=== PATIENT | female | born 1955 | race Caucasian/White ===

== ENCOUNTER 2016-06-18 14:38 | Emergency (ER) | payer MEDICARE, MEDICAID ==
[~2016-06-18] VITALS: Ht 172.7 cm; Wt 82.0 kg
[2016-06-18 14:40] VITALS: BP 135/84; PULSE 87; RESP 16; TEMP 98.2; O2SAT 98
--- NOTE | 2016-06-18 14:47 | PD ---
Physical Exam Time Seen by Provider: 14:45 Narrative 60 y/o female presents for evaluation of suicidal thoughts for weeks. She is also requesting alcohol detoxification. Vital signs reviewed. Seen at triage desk. Awaiting bed placement. Data Data Last Documented VS Vital Signs Date Time Temp Pulse Resp B/P Pulse Ox O2 Delivery O2 Flow Rate FiO2 06/18/16 18:07 92 19 133/62 95 Room Air 06/18/16 14:40 98.2 Orders Alcohol Withdrawal Asmt-Ciwa ONCE (06/18/16 15:52) Flumazenil Inj (Romazicon Inj) (06/18/16 16:00) Lorazepam (Ativan) (06/18/16 16:00) Lorazepam Inj (Ativan Inj) (06/18/16 16:00) Lorazepam (Ativan) (06/18/16 16:00) Lorazepam Inj (Ativan Inj) (06/18/16 16:00) Lorazepam Inj (Ativan Inj) (06/18/16 16:00) Lorazepam Inj (Ativan Inj) (06/18/16 16:00) Complete Blood Count With Diff (06/18/16 15:52) Comprehensive Metabolic Panel (06/18/16 15:52) Psych Screen (06/18/16 15:52) Drug Screen, Random Urine (06/18/16 15:52) Salicylates (Aspirin) (06/18/16 15:52) Tylenol (Acetaminophen) (06/18/16 15:52) Electrocardiogram (06/18/16 ) Tetanus/Diphtheria Tox Adult (Tetanus/Di (06/18/16 16:30) Alcohol (Ethanol) (06/18/16 17:06) Sumatriptan Succinate (Imitrex) (06/18/16 18:15) Labs Laboratory Tests Test 06/18/16 06/18/16 16:09 16:14 White Blood Count 5.5 TH/MM3 Red Blood Count 4.77 MIL/MM3 Hemoglobin 12.8 GM/DL Hematocrit 39.1 % Mean Corpuscular Volume 82.0 FL Mean Corpuscular Hemoglobin 26.8 PG Mean Corpuscular Hemoglobin 32.7 % Concent Red Cell Distribution Width 19.2 % Platelet Count 246 TH/MM3 Mean Platelet Volume 7.8 FL Neutrophils (%) (Auto) 46.1 % Lymphocytes (%) (Auto) 42.0 % Monocytes (%) (Auto) 6.5 % Eosinophils (%) (Auto) 4.2 % Basophils (%) (Auto) 1.2 % Neutrophils # (Auto) 2.5 TH/MM3 Lymphocytes # (Auto) 2.3 TH/MM3 Monocytes # (Auto) 0.4 TH/MM3 Eosinophils # (Auto) 0.2 TH/MM3 Basophils # (Auto) 0.1 TH/MM3 CBC Comment DIFF FINAL Differential Comment Sodium Level 138 MEQ/L Potassium Level 4.7 MEQ/L Chloride Level 105 MEQ/L Carbon Dioxide Level 25.5 MEQ/L Anion Gap 8 MEQ/L Blood Urea Nitrogen 22 MG/DL Creatinine 1.05 MG/DL Estimat Glomerular Filtration 53 ML/MIN Rate Random Glucose 118 MG/DL Calcium Level 9.6 MG/DL Total Bilirubin 0.2 MG/DL Aspartate Amino Transf 19 U/L (AST/SGOT) Alanine Aminotransferase 18 U/L (ALT/SGPT) Alkaline Phosphatase 74 U/L Total Protein 7.4 GM/DL Albumin 3.9 GM/DL Salicylates Level LESS THAN 1.7 MG/DL Acetaminophen Level 2.4 MCG/ML Urine Opiates Screen NEG Urine Barbiturates Screen POS Urine Amphetamines Screen NEG Urine Benzodiazepines Screen POS Urine Cocaine Screen NEG Urine Cannabinoids Screen NEG MDM Medical Record Reviewed: Yes Supervised Visit with TAB: Fernandez Prince June 18, 2016 14:47
[2016-06-18] MEDS ORDERED: LORazepam 2 MG/ML VIAL IV PUSH PRN ×4 (16:00)
[2016-06-18] MEDS ORDERED: FLUMAZENIL 0.5 MG/5 ML VIAL IV PUSH PRN (16:00)
[2016-06-18] MEDS ORDERED: LORazepam 2 MG TAB PO PRN (16:00)
[2016-06-18] MEDS ORDERED: LORazepam 1 MG TAB PO PRN (16:00)
--- NOTE | 2016-06-18 16:13 | PD ---
HPI Chief Complaint: Suicide Ideation/Attempt Time Seen by Provider: 14:45 Travel History International Travel<30 days: No Contact w/Intl Traveler<30days: No Traveled to known affect area: No History of Present Illness HPI 60-year-old female with history of depression, alcoholism presents for evaluation of depression and suicidal ideation. She's been feeling increasingly depressed and lonely past 2 weeks. 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 She has been having thoughts of suicide. She reports that she has a formulated plan to or does not want to discuss it. She reports that she isn't alcoholic, drinks very heavily, approximately 10 shots of alcohol as well as several beers on a daily basis. She reports that last night she was having difficulty sleeping and so she took extra doses of her prescribed Klonopin, temazepam, as well as [id number] sleeping medications and Atarax. She drinks some beer this morning. She denies any other ingestions. She does endorse self-harm in the form of cutting on the left wrist. Last tetanus vaccination unknown. She denies any illicit drug use. She would like help with her alcoholism. She has no other complaints at this time. [facility] Past Medical History Cardiovascular Problems: Yes (LOW BP) Diabetes: Yes (CONTROLLED WITH DIET) Past Surgical History Hysterectomy: Yes Social History Alcohol Use: Yes Tobacco Use: No Allergies-Medications (Allergen,Severity, Reaction): Coded Allergies: Motrin (Verified Allergy, Unknown, 06/18/16) Nonsteroidal Anti-Inflammatory Agts (Verified Allergy, Unknown, 06/18/16) Review of Systems Except as stated in HPI: all other systems reviewed are Neg Physical Exam Narrative GENERAL: This is a anxious and tearful appearing female who is in no acute distress. She is answering questions appropriately. SKIN: Warm and dry. Superficial abrasions noted to the left wrist. HEAD: Atraumatic. Normocephalic. EYES: Pupils equal and round. No scleral icterus. No injection or drainage. ENT: No nasal bleeding or discharge. Mucous membranes pink and moist. NECK: Trachea midline. No JVD. CARDIOVASCULAR: Regular rate and rhythm. No murmur appreciated. RESPIRATORY: No accessory muscle use. Clear to auscultation. Breath sounds equal bilaterally. GASTROINTESTINAL: Abdomen soft, non-tender, nondistended. Hepatic and splenic margins not palpable. MUSCULOSKELETAL: No obvious deformities. No clubbing. No cyanosis. No edema. NEUROLOGICAL: Awake and alert. No obvious cranial nerve deficits. Motor grossly within normal limits. Normal speech. PSYCHIATRIC: Depressed, anxious, tearful. Data Data Last Documented VS Vital Signs Date Time Temp Pulse Resp B/P Pulse Ox O2 Delivery O2 Flow Rate FiO2 06/18/16 14:40 98.2 87 16 135/84 98 Orders Alcohol Withdrawal Asmt-Ciwa ONCE (06/18/16 15:52) Flumazenil Inj (Romazicon Inj) (06/18/16 16:00) Lorazepam (Ativan) (06/18/16 16:00) Lorazepam Inj (Ativan Inj) (06/18/16 16:00) Lorazepam (Ativan) (06/18/16 16:00) Lorazepam Inj (Ativan Inj) (06/18/16 16:00) Lorazepam Inj (Ativan Inj) (06/18/16 16:00) Lorazepam Inj (Ativan Inj) (06/18/16 16:00) Complete Blood Count With Diff (06/18/16 15:52) Comprehensive Metabolic Panel (06/18/16 15:52) Psych Screen (06/18/16 15:52) Drug Screen, Random Urine (06/18/16 15:52) Salicylates (Aspirin) (06/18/16 15:52) Tylenol (Acetaminophen) (06/18/16 15:52) Electrocardiogram (06/18/16 ) Tetanus/Diphtheria Tox Adult (Tetanus/Di (06/18/16 16:30) Alcohol (Ethanol) (06/18/16 17:06) Labs Laboratory Tests Test 06/18/16 06/18/16 16:09 16:14 White Blood Count 5.5 TH/MM3 Red Blood Count 4.77 MIL/MM3 Hemoglobin 12.8 GM/DL Hematocrit 39.1 % Mean Corpuscular Volume 82.0 FL Mean Corpuscular Hemoglobin 26.8 PG Mean Corpuscular Hemoglobin 32.7 % Concent Red Cell Distribution Width 19.2 % Platelet Count 246 TH/MM3 Mean Platelet Volume 7.8 FL Neutrophils (%) (Auto) 46.1 % Lymphocytes (%) (Auto) 42.0 % Monocytes (%) (Auto) 6.5 % Eosinophils (%) (Auto) 4.2 % Basophils (%) (Auto) 1.2 % Neutrophils # (Auto) 2.5 TH/MM3 Lymphocytes # (Auto) 2.3 TH/MM3 Monocytes # (Auto) 0.4 TH/MM3 Eosinophils # (Auto) 0.2 TH/MM3 Basophils # (Auto) 0.1 TH/MM3 CBC Comment DIFF FINAL Differential Comment Sodium Level 138 MEQ/L Potassium Level 4.7 MEQ/L Chloride Level 105 MEQ/L Carbon Dioxide Level 25.5 MEQ/L Anion Gap 8 MEQ/L Blood Urea Nitrogen 22 MG/DL Creatinine 1.05 MG/DL Estimat Glomerular Filtration 53 ML/MIN Rate Random Glucose 118 MG/DL Calcium Level 9.6 MG/DL Total Bilirubin 0.2 MG/DL Aspartate Amino Transf 19 U/L (AST/SGOT) Alanine Aminotransferase 18 U/L (ALT/SGPT) Alkaline Phosphatase 74 U/L Total Protein 7.4 GM/DL Albumin 3.9 GM/DL Salicylates Level LESS THAN 1.7 MG/DL Acetaminophen Level 2.4 MCG/ML Urine Opiates Screen NEG Urine Barbiturates Screen POS Urine Amphetamines Screen NEG Urine Benzodiazepines Screen POS Urine Cocaine Screen NEG Urine Cannabinoids Screen NEG MDM Medical Decision Making Medical Screen Exam Complete: Yes Emergency Medical Condition: Yes Medical Record Reviewed: Yes Differential Diagnosis Major depressive disorder, depressive disorder not otherwise specified, substance-induced mood disorder, adjustment reaction, acute psychosis Narrative Course 60-year-old female presents with worsening depression over the past few weeks, significant alcohol use. She admits to taking extra doses of her prescribed benzodiazepines last night as well as [id number] sleeping medications in an effort to sleep last night. Denies any other toxic ingestions today. She is awake and alert, appears very depressed and tearful. Discussed with Dr. Bledsoe who placed under Mcintyre act. Tetanus status updated Mental health screening discussed with the patient. Psychiatric screen ordered. +barbiturates, benzo's. Medically cleared for psychiatry. Diagnosis Primary Impression: Depression Qualified Code: F32.9 - Depression, unspecified depression type Additional Impression: Alcohol abuse Fernandez Balderas June 18, 2016 16:13
[2016-06-18] MEDS ORDERED: TETANUS/DIPHTHERIA TOXOID ADULT 0.5 ML VIAL IM ONE (16:30)
[2016-06-18 16:42] LABS: AUTOMATED NEUTROPHIL # 2.5 TH/MM3 (1.8-7.7); BASOPHIL # 0.1 TH/MM3 (0-0.2); BASOPHIL % 1.2 % (0.0-2.0); EOSINOPHIL # 0.2 TH/MM3 (0-0.4); EOSINOPHIL % 4.2 % (0.0-4.0); HEMATOCRIT 39.1 % (35.0-46.0); HEMO FLAGS DIFF FINAL; LYMPHOCYTE # 2.3 TH/MM3 (1.0-4.8); MEAN CORPUSCULAR HEMOGLOBIN 26.8 PG (27.0-34.0); MEAN CORPUSCULAR HGB CONC 32.7 % (32.0-36.0); MONO % 6.5 % (0.0-8.0); NEUT % 46.1 % (16.0-70.0); PLATELET COUNT 246 TH/MM3 (150-450); RED BLOOD COUNT 4.77 MIL/MM3 (4.00-5.30); RED CELL DISTRIBUTION WIDTH 19.2 % (11.6-17.2); WHITE BLOOD COUNT 5.5 TH/MM3 (4.0-11.0)
[2016-06-18 17:03] LABS: AMPHETAMINE, URINE NEG (NEG); BARBITURATES, URINE POS (NEG); COCAINE, URINE NEG (NEG)
[2016-06-18 17:04] LABS: ACETAMINOPHEN 2.4 MCG/ML (10.0-30.0); ALKALINE PHOSPHATASE 74 U/L (45-117); ALT (GPT) 18 U/L (10-53); TOTAL BILIRUBIN ADULT 0.2 MG/DL (0.2-1.0)
[2016-06-18 17:06] LABS: ANION GAP 8 MEQ/L (5-15); AST (GOT) 19 U/L (15-37); BICARBONATE 25.5 MEQ/L (21.0-32.0); BLOOD UREA NITROGEN 22 MG/DL (7-18); CHLORIDE 105 MEQ/L (98-107); GLOMERULAR FILTRATION RATE 53 ML/MIN (>89); POTASSIUM 4.7 MEQ/L (3.5-5.1); SODIUM (NA) 138 MEQ/L (136-145)
[2016-06-18 18:07] VITALS: BP 133/62; PULSE 92; RESP 19; O2SAT 95
[2016-06-18] MEDS ORDERED: SUMAtriptan SUCCINATE 25 MG TAB PO ONE (18:15)
[2016-06-18 22:00] VITALS: BP 126/69; PULSE 78; RESP 17; O2SAT 97
[2016-06-19 02:05] VITALS: RESP 18
[2016-06-19 06:00] VITALS: BP 109/52; PULSE 70; RESP 19; O2SAT 95
[2016-06-19] MEDS ORDERED: SUMAtriptan SUCCINATE 25 MG TAB PO ONE (07:45)
--- NOTE | 2016-06-19 09:03 | PD ---
History of Present Illness Chief Complaint: Suicide Ideation/Attempt Time Seen by Provider: 08:45 Travel History International Travel<30 Days: No Contact w/Intl Traveler<30days: No Known affected area: No Legal Status Legal Status: Mcintyre Act Mcintyre Act Signed By: MOISES signed by: ELVIN Vinson. 06/18/16, [id number] History of Present Illness: History of Present Illness HPI 60-year-old female with history of alcohol dependence and depression presents for evaluation of depression and suicidal ideation. ED documentation is reviewed and included in this report: She's been feeling increasingly depressed and lonely past 2 weeks. 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 She has been having thoughts of suicide. She reports that she has a formulated plan to or does not want to discuss it. She reports that she isn't alcoholic, drinks very heavily, approximately 10 shots of alcohol as well as several beers on a daily basis. She reports that last night she was having difficulty sleeping and so she took extra doses of her prescribed Klonopin, temazepam, as well as wejm-mbk-kozpiip sleeping medications and Atarax. She drinks some beer this morning. She denies any other ingestions. She does endorse self-harm in the form of cutting on the left wrist. EMR is reviewed. case discussed with J pod RN . Patient is seen. Patient has been monitored in J pod with no behavioral concerns and no suicidality. Patient this morning is clinically sober. She is alert and oriented with clear and logical speech. her thoughts are organized with no indication of any hallucinations, no delusions and no paranoia.No current symptoms of withdrawal. She does complain of having a migraine headache. In terms of reason for admission she states " I called my PCP Dr. Dey and told him I needed to be detoxed from ETOH . He told me to come her for that. I will be going out again with my so after June 23 and need to be out by then. She denies any suicidal or homicidal ideation, intent or plan. Recent stressors include that she has been spending too much time by herself since her significant other drives a truck and she has not been travelling with him. She had a period of 1 year of sobriety but relapsed 3 months ago. [facility] Past Medical History Depression: Yes Cardiovascular Problems: Yes (LOW BP) Diabetes: Yes Patient Takes Glucophage: No Diminished Hearing: No Hypertension: Yes Migraines: Yes ?: Not Past Surgical History Abdominal Surgery: Yes Cholecystectomy: Yes Hysterectomy: Yes Other Surgery: Yes (rt shoulder) Psychiatric History Psychiatric History Hx Psychiatric Treatment: Not currently History of Inpatient Treatment: Yes (as per record has had 2 previous admissions) Guns or firearms in home: No Social History Single female. Lives with her significant other. She is on disability. Hx Alcohol Use: Yes Hx Tobacco Use: No Hx Substance Use: No Substance Use Type: Alcohol (Long hx of ETOH abuse dating back to many years. deneis any other substance use.) Other Substances Used: Struggled with ETOH for years Hx of Substance Use Treatment: Yes (No AA) Family Psychiatric History None reported Allergies-Medications (Allergen,Severity, Reaction): Coded Allergies: Motrin (Verified Allergy, Unknown, 06/18/16) Nonsteroidal Anti-Inflammatory Agts (Verified Allergy, Unknown, 06/18/16) Review of Systems Constitutional: DENIES: Diaphoretic episodes, Fatigue, Fever, Weight gain, Weight loss, Chills, Dizziness, Change in appetite, Night Sweats Endocrine: DENIES: Abnorml menstrual pattern, Heat/cold intolerance, Polydipsia , Polyuria, Polyphagia Eyes: DENIES: Blurred vision, Diplopia, Eye inflammation, Eye pain, Vision loss , Photosensitivity, Double Vision Ears, nose, mouth, throat: DENIES: Tinnitus, Hearing loss, Vertigo, Nasal discharge, Oral lesions, Throat pain, Hoarseness, Ear Pain, Running Nose, Epistaxis, Sinus Pain, Toothache, Odynophagia Respiratory: DENIES: Apneas, Cough, Snoring, Wheezing, Hemoptysis, Sputum production, Shortness of breath Cardiovascular: DENIES: Chest pain, Palpitations, Syncope, Dyspnea on Exertion , PND, Lower Extremity Edema, Orthopnea, Claudication Gastrointestinal: COMPLAINS OF: Nausea Genitourinary: DENIES: Abnormal vaginal bleeding, Dysmenorrhea, Dyspareunia, Sexual dysfunction, Urinary frequency, Urinary incontinence, Urgency, Hematuria , Dysuria, Nocturia, Vaginal discharge Musculoskeletal: DENIES: Joint pain, Muscle aches, Stiffness, Joint Swelling, Back pain, Neck pain Integumentary: DENIES: Abnormal pigmentation, Pruritus, Rash, Nail changes, Breast masses, Breast skin changes, Nipple discharge Hematologic/lymphatic: DENIES: Bruising, Lymphadenopathy Immunologic/allergic: DENIES: Eczema, Urticaria Neurologic: COMPLAINS OF: Headache (migraines) Psychiatric: DENIES: Anxiety, Confusion, Mood changes, Depression, Hallucinations, Agitation, Suicidal Ideation, Homicidal Ideation, Delusions Exam Alert: Yes [place]: Person (ox4) Mood: Calm Affect: Appropriate Speech: Clear, Logical Eye Contact: Indirect Memory Intact: Comment (no impairment) Hallucinations: Other (negative) Suicidal: Ideation (denies any) Homicidal: Ideation (denies any) Insight/Judgement Fair. not impaired. MDM Medical Decision Making Medical Record Reviewed: Yes Assessment/Plan Lift BA as this patient does not meet criteria. She is requesting treatment for hwer alcohol dependency including detoxification. As we do not offer these services here she will be transferred to [facility]. Wally is future oriented and wants to be out of the hospital before the 23 of June when her so comes in to town. To [facility] for detoxification. Orders Alcohol Withdrawal Asmt-Ciwa ONCE (06/18/16 15:52) Flumazenil Inj (Romazicon Inj) (06/18/16 16:00) Lorazepam (Ativan) (06/18/16 16:00) Lorazepam Inj (Ativan Inj) (06/18/16 16:00) Lorazepam (Ativan) (06/18/16 16:00) Lorazepam Inj (Ativan Inj) (06/18/16 16:00) Lorazepam Inj (Ativan Inj) (06/18/16 16:00) Lorazepam Inj (Ativan Inj) (06/18/16 16:00) Complete Blood Count With Diff (06/18/16 15:52) Comprehensive Metabolic Panel (06/18/16 15:52) Psych Screen (06/18/16 15:52) Drug Screen, Random Urine (06/18/16 15:52) Salicylates (Aspirin) (06/18/16 15:52) Tylenol (Acetaminophen) (06/18/16 15:52) Electrocardiogram (06/18/16 ) Tetanus/Diphtheria Tox Adult (Tetanus/Di (06/18/16 16:30) Sumatriptan Succinate (Imitrex) (06/18/16 18:15) Diet Diabetic (06/19/16 Breakfast) Alcohol (Ethanol) (06/18/16 16:09) Sumatriptan Succinate (Imitrex) (06/19/16 07:45) Results Vital Signs Date Time Temp Pulse Resp B/P Pulse Ox O2 Delivery O2 Flow Rate FiO2 06/19/16 06:00 70 19 109/52 95 Room Air 06/19/16 02:05 18 Room Air 06/18/16 22:00 78 17 126/69 97 Room Air 06/18/16 18:07 92 19 133/62 95 Room Air 06/18/16 14:40 98.2 87 16 135/84 98 Laboratory Tests Test 06/18/16 06/18/16 16:09 16:14 Salicylates Level LESS THAN 1.7 White Blood Count 5.5 Red Blood Count 4.77 Hemoglobin 12.8 Hematocrit 39.1 Mean Corpuscular Volume 82.0 Mean Corpuscular Hemoglobin 26.8 Mean Corpuscular Hemoglobin 32.7 Concent Red Cell Distribution Width 19.2 Platelet Count 246 Mean Platelet Volume 7.8 Neutrophils (%) (Auto) 46.1 Lymphocytes (%) (Auto) 42.0 Monocytes (%) (Auto) 6.5 Eosinophils (%) (Auto) 4.2 Basophils (%) (Auto) 1.2 Neutrophils # (Auto) 2.5 Lymphocytes # (Auto) 2.3 Monocytes # (Auto) 0.4 Eosinophils # (Auto) 0.2 Basophils # (Auto) 0.1 CBC Comment DIFF FINAL Differential Comment Sodium Level 138 Potassium Level 4.7 Chloride Level 105 Carbon Dioxide Level 25.5 Anion Gap 8 Blood Urea Nitrogen 22 Creatinine 1.05 Estimat Glomerular Filtration 53 Rate Random Glucose 118 Calcium Level 9.6 Total Bilirubin 0.2 Aspartate Amino Transf 19 (AST/SGOT) Alanine Aminotransferase 18 (ALT/SGPT) Alkaline Phosphatase 74 Total Protein 7.4 Albumin 3.9 Acetaminophen Level 2.4 Ethyl Alcohol Level LESS THAN 3 Urine Opiates Screen NEG Urine Barbiturates Screen POS Urine Amphetamines Screen NEG Urine Benzodiazepines Screen POS Urine Cocaine Screen NEG Urine Cannabinoids Screen NEG Diagnosis Primary Impression: Alcohol dependence Additional Impression: Depression Psychiatrically Cleared: Yes Med/ Other Pt Specific Info: No Change to Meds Disposition: 65 DISC TO PSYCH CARE FACILITY Condition: Stable Problem Qualifiers Primary Impression: Alcohol dependence Qualified Code: F10.20 - Uncomplicated alcohol dependence Additional Impression: Depression Qualified Code: F32.9 - Depression, unspecified depression type Rose Leach June 19, 2016 09:03
[2016-06-19 09:42] VITALS: BP 109/52; PULSE 70; RESP 19; O2SAT 95
--- NOTE | 2016-06-19 18:46 | EKG ---
Date Performed: 06/18/2016 Time Performed: 16:19:57 PTAGE: 60 years EKG: Sinus rhythm MARKED LEFT AXIS DEVIATION PATTERN CONSISTENT WITH PULMONARY DISEASE ABNORMAL ECG NO PREVIOUS TRACING DOCTOR: Devon Stewart Interpretating Date/Time 06/19/2016 18:43:19
[2016-06-20] MEDS ORDERED: REST30CA PO (07:11)
[2016-06-20] MEDS ORDERED: NEXI40CA PO (07:11)
[2016-06-20] MEDS ORDERED: CHLO25CA2 PO (07:11)
[2016-06-20] MEDS ORDERED: BUTA1CAP PO (07:11)
[2016-06-20] MEDS ORDERED: CLON1 PO (07:11)
[2016-06-20] MEDS ORDERED: ASPI81TA81 PO (07:11)
[2016-06-20] MEDS ORDERED: LISI10TA3 PO (07:11)
[2016-06-20] MEDS ORDERED: REGADENOSON INJ 0.4 MG/5 ML SYR ONE (13:08)
== END 2016-06-19 10:41 ==
LOC: NEPJ 14:38
DX: F10.20 Alcohol dependence, uncomplicated (principal); F32.9 Major depressive disorder, single episode, unspecified; I10 Essential (primary) hypertension; E11.9 Type 2 diabetes mellitus without complications; Y90.0 Blood alcohol level of less than 20 mg/100 ml; Z79.899 Other long term (current) drug therapy; Z23 Encounter for immunization
CPT/HCPCS: 80053; 80307; 85025; 90471; 90714; 93005; J2785

== ENCOUNTER 2016-06-20 06:53 | Observation (INO) | payer MEDICARE, MEDICAID ==
[2016-06-20] VITALS (7 sets, daily range): BP systolic 110–166; BP diastolic 62–93; PULSE 65–91; RESP 16–22; TEMP 98.4–98.9; O2SAT 92–100
[~2016-06-20] VITALS: Ht 172.7 cm; Wt 90.0 kg
[2016-06-20] MEDS ORDERED: ASPI81TA81 PO (07:11)
[2016-06-20] MEDS ORDERED: NEXI40CA PO (07:11)
[2016-06-20] MEDS ORDERED: LISI10TA3 PO (07:11)
[2016-06-20] MEDS ORDERED: CLON1 PO (07:11)
[2016-06-20] MEDS ORDERED: REST30CA PO (07:11)
[2016-06-20] MEDS ORDERED: BUTA1CAP PO (07:11)
[2016-06-20] MEDS ORDERED: CHLO25CA2 PO (07:11)
[2016-06-20] MEDS ORDERED: ONDANSETRON HCL 4 MG/2 ML VIAL IV PUSH ONE (07:15)
[2016-06-20] MEDS ORDERED: SODIUM CHLORIDE 0.9% FLUSH 10 ML FLUSH IVF PRN (07:15)
[2016-06-20] MEDS ORDERED: MORPHINE SULFATE 4 MG/ML INJ IV PUSH ONE (07:15)
[2016-06-20] MEDS ORDERED: SODIUM CHLORID 0.9% 500 ML INJ 500 ML IV ONE (07:15)
--- NOTE | 2016-06-20 07:16 | PD ---
HPI Chief Complaint: Cardiac Complaint Time Seen by Provider: 07:04 Travel History International Travel<30 days: No Contact w/Intl Traveler<30days: No Traveled to known affect area: No History of Present Illness HPI The patient is a 60-year-old female who presents emergency department for [facility] for chest pain. The patient states she developed chest pain earlier this morning that is left-sided, radiates to left arm and left neck. The pain is squeezing, this was certainly movements, but still present at rest. The patient does have a history of hypertension, hyperlipidemia, and diabetes that is diet controlled. The patient denies any known history of coronary artery disease. The patient denies tobacco use. The patient does have a history of alcohol abuse. The patient states she has stress test years ago in [place], however, was unable to complete the stress test on the treadmill. The patient does complain of mild nausea and mild shortness of breath, but denies any vomiting, diarrhea, or abdominal pain. Symptoms are moderate, no current alleviating or exacerbating factors. The patient did receive aspirin prior to arrival as well as nitroglycerin sublingual which took her pain from a 10/10 to a 5/10. PFSH Past Medical History Depression: Yes Cardiovascular Problems: Yes (LOW BP) Diabetes: Yes Patient Takes Glucophage: No Diminished Hearing: No Hypertension: Yes Migraines: Yes Past Surgical History Abdominal Surgery: Yes (GASTRIC BYPASS) Cholecystectomy: Yes Hysterectomy: Yes Other Surgery: Yes (rt shoulder) Social History Alcohol Use: Yes (DAILY UNTIL 2 DAYS AGO) Tobacco Use: No Substance Use: No Allergies-Medications (Allergen,Severity, Reaction): Coded Allergies: Motrin (Verified Allergy, Unknown, 06/18/16) Nonsteroidal Anti-Inflammatory Agts (Verified Allergy, Unknown, 06/18/16) Reported Meds & Prescriptions Reported Meds & Active Scripts Active Reported Chlordiazepoxide (Chlordiazepoxide HCl) 25 Mg Cap 50 Mg PO QID Aspir-81 (Aspirin) 81 Mg Tabdr 81 Mg PO DAILY Restoril (Temazepam) 30 Mg Cap 30 Mg PO HS PRN Nexium (Esomeprazole DR) 40 Mg Capdr 40 Mg PO DAILY Klonopin (Clonazepam) 1 Mg Tab 1 Mg PO BID Lisinopril 10 Mg Tab 10 Mg PO DAILY Fioricet (Iosukpxsex-Shygnwsrjuzfq-Qhvjtwyp) 50-300-40 Mg Cap 1-2 Cap PO Q6H PRN Review of Systems Except as stated in HPI: all other systems reviewed are Neg General / Constitutional: No: Fever HENT: No: Lightheadedness Cardiovascular: Positive: Chest Pain or Discomfort Respiratory: Positive: Shortness of Breath Gastrointestinal: Positive: Nausea Musculoskeletal: No: Edema Neurologic: No: Dizziness Psychiatric: Positive: Substance Abuse (alcohol abuse) Physical Exam Narrative GENERAL: Awake, alert, 60-year-old female who appears her stated age and is in no acute respiratory distress. SKIN: Focused skin assessment warm/dry. HEAD: Atraumatic. Normocephalic. EYES: Pupils equal and round. No scleral icterus. No injection or drainage. ENT: No nasal bleeding or discharge. Mucous membranes pink and moist. NECK: Trachea midline. No JVD. Mild tenderness of the paravertebral muscles. CARDIOVASCULAR: Regular rate and rhythm. No murmur appreciated. Heart rate in the 90s. Palpation of the chest wall does reproduce symptoms. RESPIRATORY: No accessory muscle use. Clear to auscultation. Breath sounds equal bilaterally. GASTROINTESTINAL: Abdomen soft, non-tender, nondistended. No rebound tenderness. MUSCULOSKELETAL: No obvious deformities. No clubbing. No cyanosis. No edema. Palpation the left arm reproduces pain in left arm. NEUROLOGICAL: Awake and alert. No obvious cranial nerve deficits. Motor grossly within normal limits. Normal speech. Nonfocal. PSYCHIATRIC: Appropriate mood and affect; insight and judgment normal. Data Data Last Documented VS Vital Signs Date Time Temp Pulse Resp B/P Pulse Ox O2 Delivery O2 Flow Rate FiO2 06/20/16 08:37 65 16 123/82 98 Nasal Cannula 2 06/20/16 06:55 98.4 Orders Electrocardiogram (06/20/16 ) Electrocardiogram (06/20/16 07:10) Ckmb (Isoenzyme) Profile (06/20/16 07:10) Complete Blood Count With Diff (06/20/16 07:10) Comprehensive Metabolic Panel (06/20/16 07:10) D-Dimer (06/20/16 07:10) Magnesium (Mg) (06/20/16 07:10) Prothrombin Time / Inr (Pt) (06/20/16 07:10) Act Partial Throm Time (Ptt) (06/20/16 07:10) Troponin I (06/20/16 07:10) Lipase (06/20/16 07:10) Chest, Single Ap (06/20/16 07:10) Ecg Monitoring (06/20/16 07:10) Bilateral Bp Monitoring (06/20/16 07:10) Iv Access Insert/Monitor (06/20/16 07:10) Oximetry (06/20/16 07:10) Oxygen Administration (06/20/16 07:10) Morphine Inj (Morphine Inj) (06/20/16 07:15) Sodium Chloride 0.9% Flush (Ns Flush) (06/20/16 07:15) Sodium Chlorid 0.9% 500 Ml Inj (Ns 500 M (06/20/16 07:15) Ondansetron Inj (Zofran Inj) (06/20/16 07:15) CKMB (06/20/16 07:20) CKMB% (06/20/16 07:20) Labs Laboratory Tests Test 06/20/16 07:20 White Blood Count 5.3 TH/MM3 Red Blood Count 4.80 MIL/MM3 Hemoglobin 12.8 GM/DL Hematocrit 39.6 % Mean Corpuscular Volume 82.5 FL Mean Corpuscular Hemoglobin 26.6 PG Mean Corpuscular Hemoglobin 32.3 % Concent Red Cell Distribution Width 19.3 % Platelet Count 252 TH/MM3 Mean Platelet Volume 8.0 FL Neutrophils (%) (Auto) 45.2 % Lymphocytes (%) (Auto) 40.0 % Monocytes (%) (Auto) 9.5 % Eosinophils (%) (Auto) 4.4 % Basophils (%) (Auto) 0.9 % Neutrophils # (Auto) 2.4 TH/MM3 Lymphocytes # (Auto) 2.1 TH/MM3 Monocytes # (Auto) 0.5 TH/MM3 Eosinophils # (Auto) 0.2 TH/MM3 Basophils # (Auto) 0.0 TH/MM3 CBC Comment DIFF FINAL Differential Comment Prothrombin Time 10.9 SEC Prothromb Time International 1.0 RATIO Ratio Activated Partial 24.2 SEC Thromboplast Time D-Dimer Quantitative (PE/DVT) 0.37 MG/L FEU Sodium Level 138 MEQ/L Potassium Level 5.4 MEQ/L Chloride Level 107 MEQ/L Carbon Dioxide Level 21.9 MEQ/L Anion Gap 9 MEQ/L Blood Urea Nitrogen 14 MG/DL Creatinine 0.74 MG/DL Estimat Glomerular Filtration 80 ML/MIN Rate Random Glucose 138 MG/DL Calcium Level 8.4 MG/DL Magnesium Level 2.0 MG/DL Total Bilirubin 0.3 MG/DL Aspartate Amino Transf 48 U/L (AST/SGOT) Alanine Aminotransferase 19 U/L (ALT/SGPT) Alkaline Phosphatase 66 U/L Total Creatine Kinase 209 U/L Creatine Kinase MB 1.1 NG/ML Creatine Kinase MB % 0.5 % Troponin I LESS THAN 0.02 NG/ML Total Protein 6.7 GM/DL Albumin 3.2 GM/DL Lipase 92 U/L Exceptions Acute Myocardial Infarction ASA Not Given on Arrival: Already taken by patient MDM Medical Decision Making Medical Screen Exam Complete: Yes Emergency Medical Condition: Yes Medical Record Reviewed: Yes Interpretation(s) EKG reveals normal sinus rhythm with a rate 88. Left axis deviation. Wavy baseline in leads 2, 3, and aVF. Last Impressions Chest X-Ray 06/20/16 0710 Signed Impressions: Service Date/Time: Monday, June 20, 2016 07:16 - CONCLUSION: No acute cardiopulmonary abnormality is identified. Justino Ma MD Laboratory Tests Test 06/20/16 07:20 White Blood Count 5.3 TH/MM3 Red Blood Count 4.80 MIL/MM3 Hemoglobin 12.8 GM/DL Hematocrit 39.6 % Mean Corpuscular Volume 82.5 FL Mean Corpuscular Hemoglobin 26.6 PG Mean Corpuscular Hemoglobin 32.3 % Concent Red Cell Distribution Width 19.3 % Platelet Count 252 TH/MM3 Mean Platelet Volume 8.0 FL Neutrophils (%) (Auto) 45.2 % Lymphocytes (%) (Auto) 40.0 % Monocytes (%) (Auto) 9.5 % Eosinophils (%) (Auto) 4.4 % Basophils (%) (Auto) 0.9 % Neutrophils # (Auto) 2.4 TH/MM3 Lymphocytes # (Auto) 2.1 TH/MM3 Monocytes # (Auto) 0.5 TH/MM3 Eosinophils # (Auto) 0.2 TH/MM3 Basophils # (Auto) 0.0 TH/MM3 CBC Comment DIFF FINAL Differential Comment Prothrombin Time 10.9 SEC Prothromb Time International 1.0 RATIO Ratio Activated Partial 24.2 SEC Thromboplast Time D-Dimer Quantitative (PE/DVT) 0.37 MG/L FEU Sodium Level 138 MEQ/L Potassium Level 5.4 MEQ/L Chloride Level 107 MEQ/L Carbon Dioxide Level 21.9 MEQ/L Anion Gap 9 MEQ/L Blood Urea Nitrogen 14 MG/DL Creatinine 0.74 MG/DL Estimat Glomerular Filtration 80 ML/MIN Rate Random Glucose 138 MG/DL Calcium Level 8.4 MG/DL Magnesium Level 2.0 MG/DL Total Bilirubin 0.3 MG/DL Aspartate Amino Transf 48 U/L (AST/SGOT) Alanine Aminotransferase 19 U/L (ALT/SGPT) Alkaline Phosphatase 66 U/L Total Creatine Kinase 209 U/L Creatine Kinase MB 1.1 NG/ML Creatine Kinase MB % 0.5 % Troponin I LESS THAN 0.02 NG/ML Total Protein 6.7 GM/DL Albumin 3.2 GM/DL Lipase 92 U/L Differential Diagnosis Differential diagnosis includes acute coronary syndrome, atypical pancreatitis, pulmonary embolism, pneumonia, musculoskeletal pain, neuropathy. Narrative Course IV was established, labs are drawn and sent, and the patient was placed on cardiac telemetry monitoring and continuous pulse oximetry monitoring. EKG was ordered and interpreted. The patient received aspirin and nitroglycerin prior to arrival. The patient has atypical symptoms, however, nitroglycerin did improve her symptoms from a 10/10 to a 5/10. D-dimer is negative at 0.37, therefore, no indication for CT pulmonary angiogram. The patient's left arm is sore, she received a tetanus shot in the left arm yesterday. The patient's pain has improved with aspirin and nitroglycerin, may be atypical presentation of acute coronary syndrome. The patient does have multiple risk factors, therefore, will be placed in the chest pain Center. Physician Communication Physician Communication The patient will be 23 hour observation to the chest pain Center for serial cardiac enzymes and further evaluation by cardiology. Diagnosis Primary Impression: Chest pain Qualified Code: R07.9 - Chest pain, unspecified type Admitting Information Admitting Physician Requests: Observation Condition: Stable Luca Torres MD June 20, 2016 07:16
[2016-06-20 07:36] LABS: AUTOMATED NEUTROPHIL # 2.4 TH/MM3 (1.8-7.7); BASOPHIL % 0.9 % (0.0-2.0); EOSINOPHIL # 0.2 TH/MM3 (0-0.4); EOSINOPHIL % 4.4 % (0.0-4.0); HEMATOCRIT 39.6 % (35.0-46.0); HEMO FLAGS DIFF FINAL; LYMPHOCYTE # 2.1 TH/MM3 (1.0-4.8); MEAN CELL VOLUME 82.5 FL (80.0-100.0); MEAN CORPUSCULAR HEMOGLOBIN 26.6 PG (27.0-34.0); MEAN CORPUSCULAR HGB CONC 32.3 % (32.0-36.0); MONO % 9.5 % (0.0-8.0); NEUT % 45.2 % (16.0-70.0); PLATELET COUNT 252 TH/MM3 (150-450); RED CELL DISTRIBUTION WIDTH 19.3 % (11.6-17.2); WHITE BLOOD COUNT 5.3 TH/MM3 (4.0-11.0)
[2016-06-20 07:46] LABS: APTT (PATIENT) 24.2 SEC (24.3-30.1); PROTHROMBIN TIME - PATIENT 10.9 SEC (9.8-11.6)
--- NOTE | 2016-06-20 07:48 | RADRPT ---
EXAM DATE/TIME: 06/20/2016 07:16 [facility] COMPARISON: No previous studies available for comparison. INDICATIONS : Short of breath and chest pain. MEDICAL HISTORY : None. SURGICAL HISTORY : None. ENCOUNTER: Initial ACUITY: 1 day PAIN SCORE: 4/10 LOCATION: Bilateral upper chest FINDINGS: Portable AP view of the chest demonstrates a normal-sized cardiac silhouette. No effusion, consolidat ion, or pneumothorax is visualized. The bones and soft tissues demonstrate no acute abnormality. Ther e has been prior right reverse shoulder arthroplasty. CONCLUSION: No acute cardiopulmonary abnormality is identified. Justino Ma MD on June 20, 2016 at 7:45 Board Certified Radiologist. This report was verified electronically.
[2016-06-20 08:16] LABS: ALKALINE PHOSPHATASE 66 U/L (45-117); ALT (GPT) 19 U/L (10-53); ANION GAP 9 MEQ/L (5-15); BICARBONATE 21.9 MEQ/L (21.0-32.0); BLOOD UREA NITROGEN 14 MG/DL (7-18); CHLORIDE 107 MEQ/L (98-107); GLOMERULAR FILTRATION RATE 80 ML/MIN (>89); SODIUM (NA) 138 MEQ/L (136-145); TOTAL BILIRUBIN ADULT 0.3 MG/DL (0.2-1.0)
[2016-06-20 08:32] LABS: AST (GOT) 48 U/L (15-37)
[2016-06-20 08:33] LABS: CREATINE KINASE 209 U/L (26-192); POTASSIUM 5.4 MEQ/L (3.5-5.1)
[2016-06-20 09:13] LABS: CKMB 1.1 NG/ML (0.5-3.6)
[2016-06-20] MEDS ORDERED: LORazepam 2 MG/ML VIAL IV PUSH ONE (09:45)
[2016-06-20] MEDS ORDERED: SODIUM CHLOR 0.9% 1000 ML INJ 1,000 ML IV SCH (10:35)
[2016-06-20] MEDS ORDERED: ONDANSETRON HCL 4 MG/2 ML VIAL IV PRN (10:45)
[2016-06-20] MEDS ORDERED: PANTOPRAZOLE SOD 40 MG DELAYED RELEASE TAB PO SCH (10:45)
[2016-06-20] MEDS ORDERED: MULTIVITAMIN TAB PO SCH (10:45)
[2016-06-20] MEDS ORDERED: ACETAMINOPHEN 500 MG CPLT PO PRN (10:45)
[2016-06-20] MEDS ORDERED: SODIUM CHLORIDE 0.9% FLUSH 5 ML FLUSH IVF PRN (10:45)
[2016-06-20 11:05] LABS: CREATINE KINASE 69 U/L (26-192)
--- NOTE | 2016-06-20 11:06 | HHI.HP ---
[facility] Primary Care Physician Axel Dey Chief Complaint Chest pain History of Present Illness This is a 60-year-old female that presents to the ED being transferred from [facility] to evaluate her chest discomfort. She states she was awoken around 6:00 in the morning with a discomfort in left side her chest that radiated laterally. She also had a separate discomfort on her left arm which she believes is from getting a tetanus shot the day before. She was short of breath nauseous and diaphoretic with the symptoms. Worse level discomfort was a 10 out of 10. Currently discomfort is about a 1 out of 10. She was given subluminal nitroglycerin and aspirin and brought the discomfort to a 6 out of 10. She found certain movements seem to worsen her symptoms when she had them. Denies known coronary disease but states she had attempted a stress test about a year to 2 years ago in [place] but was able to walk long enough and then eventually had an injection and continue with a stress test. She is not aware of the results of stress test but states she's never had a heart catheterization. She is at [facility] for alcohol detox. She states the last 3 months she has been drinking a quart of scotch daily prior that she was sober for a year. Review of Systems General: Patient denies fevers, chills recent, and recent travel HEENT: Patient denies headache, sore throat, difficulty swallowing. Cardiovascular: Has the chest discomfort as mentioned above. Denies sensation of heart beating rapidly or irregularly. No syncope. She was diaphoretic. Respiratory: She was short of breath. Denies inspirational chest discomfort. Denies coughing wheezing or hemoptysis. GI: She was nauseous. Patient denies vomiting, diarrhea, abdominal pain, bloody stools. Musculoskeletal: Patient denies joint pain or edema. Denies calf pain or edema. Neurovascular: Patient denies numbness, tingling, weakness in extremities. Denies headache. Endocrine: Denies polyuria and polydipsia. Hematologic: Denies easy bruising. Skin: Denies rash or itching. Past Family Social History Allergies: Coded Allergies: Motrin (Verified Allergy, Unknown, 06/18/16) Nonsteroidal Anti-Inflammatory Agts (Verified Allergy, Unknown, 06/18/16) Past Medical History Hypertension, depression, anxiety, hyperlipidemia however no medication, diabetes which she states diet-controlled, and alcohol abuse. Denies CAD and tobacco abuse. Past Surgical History Gastric bypass, cholecystectomy, and hysterectomy. Reported Medications Reported Meds & Active Scripts Active Reported Chlordiazepoxide (Chlordiazepoxide HCl) 25 Mg Cap 50 Mg PO QID Aspir-81 (Aspirin) 81 Mg Tabdr 81 Mg PO DAILY Restoril (Temazepam) 30 Mg Cap 30 Mg PO HS PRN Nexium (Esomeprazole DR) 40 Mg Capdr 40 Mg PO DAILY Klonopin (Clonazepam) 1 Mg Tab 1 Mg PO BID Lisinopril 10 Mg Tab 10 Mg PO DAILY Fioricet (Zfnruhjsjo-Yqocrojxoqquz-Aomakiqy) 50-300-40 Mg Cap 1-2 Cap PO Q6H PRN Active Ordered Medications Current Medications Medications (Trade) Dose Ordered Sig/Joao Route Start Time Stop Time Status Last Admin (NS Flush) 2 ml UNSCH PRN IVF 06/20/16 10:45 (NS Flush) 2 ml BID IVF 06/20/16 21:00 (Tylenol) 500 mg Q4H PRN PO 06/20/16 10:45 (Zofran Inj) 4 mg Q6H PRN IV 06/20/16 10:45 (Protonix) 40 mg DAILY PO 06/20/16 10:45 Multivitamins 1 tab 1 tab DAILY PO 06/20/16 10:45 (NS 1000 ml Inj) 1,000 ml @ 100 mls/hr Q10H IV 06/20/16 10:35 06/20/16 20:34 Family History Her father had onset CAD in his 40s and at 76 of CAD. Social History Patient is a lifetime nonsmoker. She drinks a quart of scotch daily for the last 3 months. Denies illicit drugs. Physical Exam Vital Signs Vital Signs Date Time Temp Pulse Resp B/P Pulse Ox O2 Delivery O2 Flow Rate FiO2 06/20/16 09:37 72 22 123/68 100 Room Air 06/20/16 08:37 65 16 123/82 98 Nasal Cannula 2 06/20/16 07:13 97 Nasal Cannula 2 06/20/16 06:55 98.4 91 16 133/93 Physical Exam GENERAL: This is a well-nourished, well-developed patient, in no apparent distress. Patient speaks in clear complete sentences. Patient is pleasant. HEENT: Head is atraumatic and normocephalic. Neck is supple without lymphadenopathy and trachea is midline. No JVD or carotid bruits. CARDIOVASCULAR: Regular rate and rhythm without murmurs, gallops, or rubs. RESPIRATORY: Left-sided chest wall is tender when palpating and with movement of the torso. This is the discomfort she has been having. Clear to auscultation. Breath sounds equal bilaterally. No wheezes, rales, or rhonchi. No use of accessory muscles. GASTROINTESTINAL: Abdomen is nontender, nondistended. Abdomen soft. No obvious pulsatile mass or bruit. No CVA tenderness. Strong femoral pulses bilaterally. Normal bowel sounds in all quadrants. MUSCULOSKELETAL: Patient is moving upper and lower extremities freely. No calf tenderness or edema, no Homans sign. Strong pulses in upper and lower extremities. NEUROLOGICAL: Patient is alert and oriented. Cranial nerves 2-12 are grossly intact. No focal deficits and speech is clear. SKIN: No rash and turgor is normal. Laboratory Laboratory Tests Test 06/20/16 07:20 White Blood Count 5.3 Red Blood Count 4.80 Hemoglobin 12.8 Hematocrit 39.6 Mean Corpuscular Volume 82.5 Mean Corpuscular Hemoglobin 26.6 Mean Corpuscular Hemoglobin 32.3 Concent Red Cell Distribution Width 19.3 Platelet Count 252 Mean Platelet Volume 8.0 Neutrophils (%) (Auto) 45.2 Lymphocytes (%) (Auto) 40.0 Monocytes (%) (Auto) 9.5 Eosinophils (%) (Auto) 4.4 Basophils (%) (Auto) 0.9 Neutrophils # (Auto) 2.4 Lymphocytes # (Auto) 2.1 Monocytes # (Auto) 0.5 Eosinophils # (Auto) 0.2 Basophils # (Auto) 0.0 CBC Comment DIFF FINAL Differential Comment Prothrombin Time 10.9 Prothromb Time International 1.0 Ratio Activated Partial 24.2 Thromboplast Time D-Dimer Quantitative (PE/DVT) 0.37 Sodium Level 138 Potassium Level 5.4 Chloride Level 107 Carbon Dioxide Level 21.9 Anion Gap 9 Blood Urea Nitrogen 14 Creatinine 0.74 Estimat Glomerular Filtration 80 Rate Random Glucose 138 Calcium Level 8.4 Magnesium Level 2.0 Total Bilirubin 0.3 Aspartate Amino Transf 48 (AST/SGOT) Alanine Aminotransferase 19 (ALT/SGPT) Alkaline Phosphatase 66 Total Creatine Kinase 209 Creatine Kinase MB 1.1 Creatine Kinase MB % 0.5 Troponin I LESS THAN 0.02 Total Protein 6.7 Albumin 3.2 Lipase 92 Result Diagram: 06/20/16 0720 06/20/16 0720 Imaging Last 24 hours Impressions Chest X-Ray 06/20/16 0710 Signed Impressions: Service Date/Time: Monday, June 20, 2016 07:16 - CONCLUSION: No acute cardiopulmonary abnormality is identified. Justino Ma MD Course Initial EKG is sinus rhythm rate of [address] segment depressions or elevations. Assessment and Plan Assessment and Plan * Chest pain: Patient will have repeated troponin and EKG and will likely have a Lexiscan. She'll likely be discharged home if the Lexiscan is nonischemic. She will be seen by Dr. Cooley cardiology in the chest pain center. * Hypertension: Continue current medication. * Diabetes: She states she is controlled with diet. She should follow diabetic diet. We'll monitor with sliding scale coverage. * Hyperlipidemia: Patient states takes the medication. She should discuss this further with her PCP. * Anxiety and depression: Continue current medication. * Alcohol abuse: Patient should go back history of [facility] after this admission. Patient is stable at this time. She is agreeable to this plan. Panchito Kahn June 20, 2016 11:06
[2016-06-20] MEDS ORDERED: LISINOPRIL 10 MG TAB PO SCH (11:15)
[2016-06-20] MEDS ORDERED: clonazePAM 1 MG TAB PO SCH (11:15)
[2016-06-20] MEDS ORDERED: TEMAZEPAM 15 MG CAP PO PRN (11:15)
[2016-06-20 12:12] LABS: BICARBONATE 24.5 MEQ/L (21.0-32.0); POTASSIUM 3.8 MEQ/L (3.5-5.1)
[2016-06-20] MEDS ORDERED: chlordiazePOXIDE 25 MG CAP PO SCH (13:00)
[2016-06-20] MEDS ORDERED: REGADENOSON INJ 0.4 MG/5 ML SYR ONE (13:14)
[2016-06-20] MEDS ORDERED: AMINOPHYLLINE INJ 250 MG/10 ML VIAL ONE ×2 (13:31→13:47)
--- NOTE | 2016-06-20 14:20 | RADRPT ---
EXAM DATE/TIME: 06/20/2016 12:36 [facility] COMPARISON: No previous studies available for comparison. INDICATIONS : Left chest pain radiating to the left arm and neck with nausea and dyspnea. Angina. DOSE: 25.6 mCi Tc99m Myoview at stress. 8.8 mCi Tc99m Myoview at rest. 0.4 mg Lexiscan STRESS SYMPTOMS: Short of breath and headache. MEDICATIONS: 1.) 100 mg Aminophylline EJECTION FRACTION: 67% MEDICAL HISTORY : Hypercholesterolemia. Hypertension. Diabetes mellitus type 2. SURGICAL HISTORY : Cholecystectomy. Hysterectomy. ENCOUNTER: Initial ACUITY: 1 day PAIN SCALE: 10/10 LOCATION: Left chest TECHNIQUE: The patient underwent pharmacologic stress with infusion of prescribed dose. Continuous ECG tracing was monitored during stress. Gated SPECT imaging was performed after stress and conventional SPECT i maging was performed at rest. The examination was performed on a SPECT/CT scanner, both attenuation and non-corrected datasets were reviewed. FINDINGS: DISTRIBUTION: The maximum perfused segment at stress is in the anterior wall. PERFUSION STUDY: The pattern of perfusion at stress is within normal limits. GATED STUDY: There is intact wall motion and thickening without hypokinetic or dyskinetic segments. CONCLUSION: 1. No reversible perfusion defect to suggest stress-induced myocardial ischemia identified. RISK CATEGORY: Low (<1% Annual Mortality Rate) Bertrand Ivy MD on June 20, 2016 at 14:17 Board Certified Radiologist. This report was verified electronically.
--- NOTE | 2016-06-20 15:21 | EKG ---
Date Performed: 06/20/2016 Time Performed: 07:03:10 PTAGE: 60 years EKG: Sinus rhythm MARKED LEFT AXIS DEVIATION PATTERN CONSISTENT WITH PULMONARY DISEASE ABNORMAL ECG PREVIOUS TRACING : 06/18/2016 16.19 DOCTOR: Brendan Kiser Interpretating Date/Time 06/20/2016 15:20:55
--- NOTE | 2016-06-20 16:23 | HHI.DCPOC ---
Discharge Care Plan Diagnosis: (1) Chest pain (2) Hypertension (3) Hyperlipidemia (4) DM (diabetes mellitus) Goals to Promote Your Health * To prevent worsening of your condition and complications * To maintain your health at the optimal level Directions to Meet Your Goals Take your medications as prescribed Follow your dietary instruction Follow activity as directed Keep your appointments as scheduled Take your immunizations and boosters as scheduled If your symptoms worsen call your PCP, if no PCP go to Urgent Care Center or Emergency Room Smoking is Dangerous to Your Health. Avoid second hand smoke Call the 24-hour hour crisis hotline for domestic abuse at Panchito Kahn June 20, 2016 16:23
--- NOTE | 2016-06-20 16:30 | TR ---
Date Performed: 06/20/2016 Time Performed: 13:14:09 DOCTOR: Jaguar Cooley DRUG LIST: CLINICAL HISTORY: REASON FOR TEST: Angina REASON FOR ENDING: OBSERVATION: CONCLUSION: Lexiscan stress test was performed under standard four minute protocol. Radionuclid e was injected one minute prior to ending the test. No electrocardiographic abormalities were present to suggest ischemia. Nuclear imaging and interpretation are pending. COMMENTS:
[2016-06-20] MEDS ORDERED: SODIUM CHLORIDE 0.9% FLUSH 5 ML FLUSH IVF SCH (21:00)
--- NOTE | 2016-06-21 22:04 | EKG ---
Date Performed: 06/20/2016 Time Performed: 10:51:29 PTAGE: 60 years EKG: Sinus rhythm PATTERN CONSISTENT WITH PULMONARY DISEASE LEFT ANTERIOR FASCICULAR BLOCK ABNORMAL ECG PREVIOUS TRACING : 06/20/2016 07.03 DOCTOR: Leanna Mckeon Interpretating Date/Time 06/21/2016 22:00:39
== END 2016-06-20 17:35 | disposition home or self-care (01) ==
LOC: NEPE 06:53 → NEDA 09:31 → NEPHCDU 11:29
DX: R07.89 Other chest pain (principal); I10 Essential (primary) hypertension; E78.5 Hyperlipidemia, unspecified; E11.9 Type 2 diabetes mellitus without complications; F41.9 Anxiety disorder, unspecified; F10.10 Alcohol abuse, uncomplicated; F32.9 Major depressive disorder, single episode, unspecified; Z88.8 Allergy status to other drugs, medicaments and biological substances; Z79.82 Long term (current) use of aspirin; Z98.84 Bariatric surgery status
CPT/HCPCS: 71010; 78452; 80048; 80053; 82550; 82552; 83690; 83735; 84484; 85025; 85379; 85610; 85730; 93005; 93017; 96361; 96374; 96375; 99285; A9502; G0378; J0280; J2060; J2270; J2405; J2785; J7030; J7040